=== PATIENT | male | born 1990 | race Caucasian/White ===

== ENCOUNTER 2017-04-04 15:30 | Emergency (ER) | payer OTHER ==
[~2017-04-04] VITALS: Ht 172.7 cm; Wt 80.0 kg
[2017-04-04 15:54] VITALS: BP 135/89; PULSE 71; RESP 16; TEMP 97.9; O2SAT 100
[2017-04-04] MEDS ORDERED: HYDR-3366 PO (15:57)
[2017-04-04] MEDS ORDERED: GABA100C4 PO (15:57)
[2017-04-04] MEDS ORDERED: CYCL5TAB PO (15:57)
[2017-04-04 15:58] VITALS: BP 135/89; PULSE 71; RESP 16; TEMP 97.9; O2SAT 100
[2017-04-04] MEDS ORDERED: NICOTINE 21 MG/24 HR PATCH T-DERMAL ONE (16:30)
[2017-04-04 16:52] LABS: ALKALINE PHOSPHATASE 60 U/L (45-117); TOTAL BILIRUBIN ADULT 0.6 MG/DL (0.2-1.0); TOTAL PROTEIN 7.1 GM/DL (6.4-8.2)
[2017-04-04 17:09] LABS: ALBUMIN 3.4 GM/DL (3.4-5.0); ALT (GPT) 31 U/L (12-78); AST (GOT) 33 U/L (15-37); BICARBONATE 30.5 MEQ/L (21.0-32.0); BLOOD UREA NITROGEN 12 MG/DL (7-18); CALCIUM 8.6 MG/DL (8.5-10.1); CHLORIDE 109 MEQ/L (98-107); CREATININE 1.18 MG/DL (0.60-1.30); GLOMERULAR FILTRATION RATE 73 ML/MIN (>89); GLUCOSE,RANDOM 106 MG/DL (74-106); SODIUM (NA) 144 MEQ/L (136-145)
[2017-04-04 17:19] LABS: ACETAMINOPHEN LESS THAN 2.0 MCG/ML (10.0-30.0)
--- NOTE | 2017-04-04 17:56 | PD ---
HPI Chief Complaint: Psychiatric Symptoms Time Seen by Provider: 15:59 Travel History International Travel<30 days: No Contact w/Intl Traveler<30days: No Traveled to known affect area: No History of Present Illness HPI 27-year-old male presents to the emergency department for psychological evaluation. He was Tello acted by [facility] and sent here for psych eval. Patient reports suicidal ideation 6 months with worsening. Plan is "to do quick and easy." His plan is to eat a bunch of pills. Denies history of suicidal attempt. Positive suicidal cause by the fact that he "doesn't like where his is at and he has no family or friends." Reports illicit drug use. Reports using heroin and ice. Says his symptoms are exacerbated with prolonged use of drugs. Denies homicidal ideations. Reports auditory and visual hallucinations. Denies psychiatric history. Onset 6 months ago. Duration 6 months. Aggravated by drugs. No known relieving factors. No known allergies. No primary care provider. History of seizures and does not take medications. Has no emergent medical complaints. Denies chest pain, shortness breath, abdominal pain, fevers, vomiting. Has no other medical complaints. No other modifying factors or associated signs and symptoms. PFSH Past Medical History Medical History: Denies Significant Hx Medical other: Yes (CHRONIC BACK PAIN) Past Surgical History Surgical History: No Previous Surgery Social History Alcohol Use: Yes Tobacco Use: Yes Substance Use: Yes Allergies-Medications (Allergen,Severity, Reaction): Coded Allergies: No Known Allergies (Unverified , 04/04/17) Reported Meds & Prescriptions Reported Meds & Active Scripts Active Reported [place] (Hydrocodone-Acetaminophen) 10-325 Mg Tab 1 Tab PO Q6H PRN Flexeril (Cyclobenzaprine HCl) 5 Mg Tab 5 Mg PO TID Gabapentin 100 Mg Cap 200 Mg PO BID Review of Systems Except as stated in HPI: all other systems reviewed are Neg Physical Exam Narrative GENERAL: Well-nourished, well-developed male patient, in no acute distress SKIN: Warm and dry. HEAD: Atraumatic. Normocephalic. EYES: Pupils equal and round. ENT: Mucosa pink and moist. NECK: Supple. Trachea midline. CARDIOVASCULAR: Regular rate and rhythm. No murmur appreciated. RESPIRATORY: No accessory muscle use. Clear to auscultation. Breath sounds equal bilaterally. GASTROINTESTINAL: Abdomen soft, non-tender, nondistended. Hepatic and splenic margins not palpable. Bowel sounds are active 4 quadrants. MUSCULOSKELETAL: No obvious deformities. No clubbing. No cyanosis. No edema. NEUROLOGICAL: Awake and alert. Oriented 3. No obvious cranial nerve deficits. Motor grossly within normal limits. Normal speech. Moves all extremities. 5/5 strength to all extremities. PSYCHIATRIC: No delusional thought processes. No hallucinations. Data Data Last Documented VS Vital Signs Date Time Temp Pulse Resp B/P (MAP) Pulse Ox O2 Delivery O2 Flow Rate FiO2 04/04/17 15:58 97.9 71 16 135/89 (104) 100 Room Air Orders Orders Comprehensive Metabolic Panel (04/04/17 16:00) Psych Screen (04/04/17 16:00) Drug Screen, Random Urine (04/04/17 16:00) Alcohol (Ethanol) (04/04/17 16:00) Salicylates (Aspirin) (04/04/17 16:00) Tylenol (Acetaminophen) (04/04/17 16:00) Diet Regular Basic (04/04/17 Dinner) Nicotine 21 Mg Patch.24 Hr (Habitrol 21 (04/04/17 16:30) Ibuprofen (Motrin) (04/04/17 18:00) Labs Laboratory Tests Test 04/04/17 16:20 Blood Urea Nitrogen 12 MG/DL Creatinine 1.18 MG/DL Random Glucose 106 MG/DL Total Protein 7.1 GM/DL Albumin 3.4 GM/DL Calcium Level 8.6 MG/DL Alkaline Phosphatase 60 U/L Aspartate Amino Transf (AST/SGOT) 33 U/L Alanine Aminotransferase (ALT/SGPT) 31 U/L Total Bilirubin 0.6 MG/DL Sodium Level 144 MEQ/L Potassium Level 4.3 MEQ/L Chloride Level 109 MEQ/L Carbon Dioxide Level 30.5 MEQ/L Anion Gap 5 MEQ/L Estimat Glomerular Filtration Rate 73 ML/MIN Salicylates Level LESS THAN 1.7 MG/DL Urine Opiates Screen NEG Acetaminophen Level LESS THAN 2.0 MCG/ML Urine Barbiturates Screen POS Urine Amphetamines Screen NEG Urine Benzodiazepines Screen NEG Urine Cocaine Screen NEG Urine Cannabinoids Screen NEG Ethyl Alcohol Level LESS THAN 3 MG/DL MDM Medical Decision Making Medical Screen Exam Complete: Yes Emergency Medical Condition: Yes Medical Record Reviewed: Yes Differential Diagnosis Suicidal ideation, suicidal plan, medical clearance for psych evaluation Narrative Course Patient was seen in [facility] and I reviewed the medical record. CBC , CMP unremarkable. Drug screen, EtOH, salicylate, and Tylenol level ordered. Patient presents under a Tello act. Physical examination and vital signs are essentially unremarkable. Patient has no medical complaints to report. Psych screen has been ordered. If the laboratory results are unremarkable, the patient will be medically cleared for psychiatric evaluation and disposition. Diagnosis Primary Impression: Medical clearance for psychiatric admission Condition: Stable Tiny Fraser Apr 04, 2017 17:56
[2017-04-04] MEDS ORDERED: IBUPROFEN 800 MG TAB PO ONE (18:00)
[2017-04-04 19:31] VITALS: BP 126/71; PULSE 73; RESP 15; O2SAT 99
--- NOTE | 2017-04-05 09:00 | PD ---
History of Present Illness Chief Complaint: Psychiatric Symptoms Time Seen by Provider: 09:00 Travel History International Travel<30 Days: No Contact w/Intl Traveler<30days: No Known affected area: No Legal Status Legal Status: Tello Act Tello Act Signed By: SEB ZHENG MD History of Present Illness: 27-year-old male with self-admitted history of substance abuse. Patient denies any suicidal or homicidal ideation, plan or intent. 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 He would like "2 or 3 days of drying out" at [facility] for his drug abuse. He has no cognitive deficits and no psychotic symptoms. He is verbally kaitlin for safety and he is competent to do so. PFSH Past Medical History Medical History: Denies Significant Hx Medical other: Yes (CHRONIC BACK PAIN) Past Surgical History Surgical History: No Previous Surgery Psychiatric History Psychiatric History Hx Psychiatric Treatment: NONE History of Inpatient Treatment: No Guns or firearms in home: No Social History Hx Alcohol Use: Yes Hx Tobacco Use: Yes Hx Substance Use: Yes Substance Use Type: Prescription Medications, Heroin, Synth Opiates-Pain Pills Hx of Substance Use Treatment: Yes Allergies-Medications (Allergen,Severity, Reaction): Coded Allergies: No Known Allergies (Unverified , 04/04/17) Reported Meds & Prescriptions Reported Meds & Active Scripts Active Reported [place] (Hydrocodone-Acetaminophen) 10-325 Mg Tab 1 Tab PO Q6H PRN Flexeril (Cyclobenzaprine HCl) 5 Mg Tab 5 Mg PO TID Gabapentin 100 Mg Cap 200 Mg PO BID Review of Systems Except as stated in HPI: all other systems reviewed are Neg Mental Status Examination Appearance: Appropriate Consciousness: Alert Orientation: x4 Motor Activity: Normal gait Speech: Unremarkable Language: Adequate Fund of Knowledge: Adequate Attention and Concentration: Adequate Memory: Unremarkable Mood: Appropriate Affect: Appropriate Thought Process & Associations: Intact Thought Content: Appropriate Hallucination Type: None Delusion Type: None Suicidal Ideation: No Suicidal Plan: No Suicidal Intention: No Homicidal Ideation: No Homicidal Plan: No Homicidal Intention: No Insight: Adequate Judgment: Adequate MDM Medical Decision Making Medical Record Reviewed: Yes Assessment/Plan Patient interviewed at bedside. Electronic medical record reviewed. Case discussed with nurse Jeanie. Patient does not meet criteria for Tello act. We are trying to facilitate transfer to [facility] for drug detox and rehabilitation. Orders Orders Comprehensive Metabolic Panel (04/04/17 16:00) Psych Screen (04/04/17 16:00) Drug Screen, Random Urine (04/04/17 16:00) Alcohol (Ethanol) (04/04/17 16:00) Salicylates (Aspirin) (04/04/17 16:00) Tylenol (Acetaminophen) (04/04/17 16:00) Diet Regular Basic (04/04/17 Dinner) Nicotine 21 Mg Patch.24 Hr (Habitrol 21 (04/04/17 16:30) Ibuprofen (Motrin) (04/04/17 18:00) Diet Regular Basic (04/05/17 Breakfast) Results Vital Signs Date Time Temp Pulse Resp B/P (MAP) Pulse Ox O2 Delivery O2 Flow Rate FiO2 04/04/17 19:31 73 15 126/71 (89) 99 Room Air 04/04/17 15:58 97.9 71 16 135/89 (104) 100 Room Air 04/04/17 15:54 97.9 71 16 135/89 (104) 100 Laboratory Tests Test 04/04/17 16:20 Blood Urea Nitrogen 12 Creatinine 1.18 Random Glucose 106 Total Protein 7.1 Albumin 3.4 Calcium Level 8.6 Alkaline Phosphatase 60 Aspartate Amino Transf (AST/SGOT) 33 Alanine Aminotransferase (ALT/SGPT) 31 Total Bilirubin 0.6 Sodium Level 144 Potassium Level 4.3 Chloride Level 109 Carbon Dioxide Level 30.5 Anion Gap 5 Estimat Glomerular Filtration Rate 73 Salicylates Level LESS THAN 1.7 Urine Opiates Screen NEG Acetaminophen Level LESS THAN 2.0 Urine Barbiturates Screen POS Urine Amphetamines Screen NEG Urine Benzodiazepines Screen NEG Urine Cocaine Screen NEG Urine Cannabinoids Screen NEG Ethyl Alcohol Level LESS THAN 3 Diagnosis Primary Impression: Opiate abuse, episodic Condition: Stable Nish Cavazos MD Apr 05, 2017 09:00
--- NOTE | 2017-04-05 09:32 | PD ---
Physical Exam Time Seen by Provider: 09:[address] Cvaazos has evaluated the patient, lifted Tello act and cleared the patient for discharge. Data Data Last Documented VS Vital Signs Date Time Temp Pulse Resp B/P (MAP) Pulse Ox O2 Delivery O2 Flow Rate FiO2 04/04/17 19:31 73 15 126/71 (89) 99 Room Air 04/04/17 15:58 97.9 Orders Orders Comprehensive Metabolic Panel (04/04/17 16:00) Psych Screen (04/04/17 16:00) Drug Screen, Random Urine (04/04/17 16:00) Alcohol (Ethanol) (04/04/17 16:00) Salicylates (Aspirin) (04/04/17 16:00) Tylenol (Acetaminophen) (04/04/17 16:00) Diet Regular Basic (04/04/17 Dinner) Nicotine 21 Mg Patch.24 Hr (Habitrol 21 (04/04/17 16:30) Ibuprofen (Motrin) (04/04/17 18:00) Diet Regular Basic (04/05/17 Breakfast) Labs Laboratory Tests Test 04/04/17 16:20 Blood Urea Nitrogen 12 MG/DL Creatinine 1.18 MG/DL Random Glucose 106 MG/DL Total Protein 7.1 GM/DL Albumin 3.4 GM/DL Calcium Level 8.6 MG/DL Alkaline Phosphatase 60 U/L Aspartate Amino Transf (AST/SGOT) 33 U/L Alanine Aminotransferase (ALT/SGPT) 31 U/L Total Bilirubin 0.6 MG/DL Sodium Level 144 MEQ/L Potassium Level 4.3 MEQ/L Chloride Level 109 MEQ/L Carbon Dioxide Level 30.5 MEQ/L Anion Gap 5 MEQ/L Estimat Glomerular Filtration Rate 73 ML/MIN Salicylates Level LESS THAN 1.7 MG/DL Urine Opiates Screen NEG Acetaminophen Level LESS THAN 2.0 MCG/ML Urine Barbiturates Screen POS Urine Amphetamines Screen NEG Urine Benzodiazepines Screen NEG Urine Cocaine Screen NEG Urine Cannabinoids Screen NEG Ethyl Alcohol Level LESS THAN 3 MG/DL [facility] Supervised Visit with ARAMIS: No Narrative Course Dr. Cavazos has evaluated the patient, lifted Tello act and cleared the patient for discharge. Patient has an appointment with Clark Chand for follow-up. Patient contracts safety. Denies suicidal or homicidal ideations. Patient will be provided community resource packet to [facility] for follow-up. Has friends and family for support. Patient was medically cleared by alternate provider prior to psych screening. Patient has been evaluated by psychiatry and and is now cleared for discharge. Diagnosis Primary Impression: Opiate abuse, episodic Referrals: [facility] (Out patient) [facility] Primary Care Physician Psychiatrist Florina [facility] Patient Instructions: General Instructions, Opioid Dependence (ED) Additional Instruction: Contract safety to your self and others Stop Using drugs Follow-up with psychiatry Follow-up with primary care provider Follow-up with Yobany Rainey Return to the emergency department immediately with worsening of symptoms Med/Other Pt SpecificInfo: No Change to Meds, No Meds Exist/No RX given Disposition: 01 DISCHARGE HOME Condition: Stable Tiny Fraser Apr 05, 2017 09:32
== END 2017-04-05 09:52 | disposition home or self-care (01) ==
LOC: NEPD 15:30
DX: F11.10 Opioid abuse, uncomplicated (principal); G89.29 Other chronic pain; M54.9 Dorsalgia, unspecified; Z72.0 Tobacco use
CPT/HCPCS: 80053; 80307; 99284